=== PATIENT | male | born 1975 | race American Indian/Alaskan Native ===

== ENCOUNTER 2016-12-04 14:54 | Emergency (ER) | payer SELFPAY ==
[2016-12-04 16:22] LABS: Basophils % (Auto) 0.5 % (0.0-1.8); Eosinophils % (Auto) 1.2 % (0.0-4.3); Hematocrit 38.7 % (35.5-45.6); Hemoglobin 13.1 gm/dl (11.8-15.2); Mean Corpuscular HGB Conc 34 % (32-34); Mean Corpuscular Hemoglobin 32 pg (28-32); Mean Corpuscular Volume 93 fl (84-94); Platelet Count 281 K/mm3 (140-440); Red Blood Count 4.16 M/mm3 (3.65-5.03); Red Cell Distribution Width 13.6 % (13.2-15.2); White Blood Count 9.2 K/mm3 (4.5-11.0)
[2016-12-04 16:30] LABS: Anion Gap 16 mmol/L; Blood Urea Nitrogen 16 mg/dL (9-20); Calcium 8.7 mg/dL (8.4-10.2); Carbon Dioxide 26 mmol/L (22-30); Chloride 101.3 mmol/L (98-107); Glucose 115 mg/dL (75-100); Potassium 3.8 mmol/L (3.6-5.0); Sodium 139 mmol/L (137-145)
[2016-12-04 23:33] VITALS: BP 152/77
--- NOTE | 2016-12-04 23:57 | Emergency Department Report ---
ED Chest Pain HPI - General Chief Complaint: Chest Pain Stated Complaint: CHEST PAIN /CHILLS/COUGHING/SHARP PAIN ON BACK Time Seen by Provider: 12/04/16 23:45 Source: patient Mode of arrival: Ambulatory Limitations: No Limitations - History of Present Illness Initial Comments: 41-year-old male presents to the emergency department complaining of chest pain. Patient reports intermittent anterior chest pain for the past 3 days. He states that night he begins coughing and has difficulty sleeping. He reports nasal congestion and headache as well. Patient denies other associated symptoms. There are no other complaints. MD Complaint: chest pain -: Gradual, days(s) (3) Onset: during rest Pain Location: substernal Pain Radiation: none Severity: mild Severity scale (0 -10): 0 Quality: tightness Consistency: intermittent Improves With: nothing Worsens With: nothing re: denies: nausea, vomting, diaphoresis, dyspnea Other Symptoms: cough Treatments Prior to Arrival: none Aspirin use within the Past 7 Days: (0) No - Related Data Previous Rx's Medication Instructions Recorded Last Taken Type Famotidine [Pepcid] 20 mg PO BID #28 tablet 12/19/15 Unknown Rx Omeprazole [PriLOSEC] 20 mg PO QDAY #14 capsule. 12/19/15 Unknown Rx Benzonatate [Tessalon Perles] 100 mg PO Q8HR PRN #30 capsule 12/05/16 Unknown Rx Allergies Allergy/AdvReac Type Severity Reaction Status Date / Time No Known Allergies Allergy Verified 12/18/15 21:59 LIZZIE score - Lizzie Score Age > 65: (0) No Aspirin use within the Past 7 Days: (0) No 3 or more CAD Risk Factors: (0) No 2 or more Angina events in past 24 hrs: (0) No Known CAD with more than 50% Stenosis: (0) No Elevated Cardiac Markers: (0) No ST Deviation Greater than 0.5mm: (0) No LIZZIE Score: 0 ED Review of Systems ROS: Stated complaint: CHEST PAIN /CHILLS/COUGHING/SHARP PAIN ON BACK Other details as noted in HPI Comment: All other systems reviewed and negative ENT: congestion Respiratory: cough Cardiovascular: chest pain Neurological: headache ED Past Medical Hx - Past Medical History Previous Medical History?: Yes Additional medical history: Sinusitis. 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 right knee surgery - Family History Family history: CAD/CT - Social History Smoking Status: Current Every Day Smoker Substance Use Type: Alcohol - Medications Home Medications: Home Medications Medication Instructions Recorded Confirmed Last Taken Type Famotidine [Pepcid] 20 mg PO BID #28 tablet 12/19/15 Unknown Rx Omeprazole [PriLOSEC] 20 mg PO QDAY #14 capsule. 12/19/15 Unknown Rx Benzonatate [Tessalon Perles] 100 mg PO Q8HR PRN #30 capsule 12/05/16 Unknown Rx ED Physical Exam - General Limitations: No Limitations General appearance: alert, in no apparent distress - Head Head exam: Present: atraumatic, normocephalic - Eye Eye exam: Present: normal appearance, PERRL, EOMI - ENT ENT exam: Present: normal exam, normal orophraynx, mucous membranes moist - Neck Neck exam: Present: normal inspection, full ROM. Absent: tenderness - Respiratory Respiratory exam: Present: normal lung sounds bilaterally. Absent: respiratory distress - Cardiovascular Cardiovascular Exam: Present: regular rate, normal rhythm, normal heart sounds - GI/Abdominal GI/Abdominal exam: Present: soft, normal bowel sounds. Absent: distended, tenderness - Extremities Exam Extremities exam: Present: normal inspection, full ROM. Absent: tenderness - Back Exam Back exam: Present: normal inspection, full ROM. Absent: tenderness - Neurological Exam Neurological exam: Present: alert, oriented X3. Absent: motor sensory deficit - Skin Skin exam: Present: warm, dry, intact ED Course Vital Signs 12/04/16 12/04/16 12/04/16 15:18 21:12 23:32 Temperature 98 F 98.5 F Pulse Rate 66 62 74 Respiratory 16 20 16 Rate Blood Pressure 140/61 148/76 Blood Pressure 152/77 [Left] O2 Sat by Pulse 98 100 10 L Oximetry ED Medical Decision Making - Lab Data Result diagrams: 12/04/16 15:55 12/04/16 15:55 - EKG Data -: EKG Interpreted by Me EKG shows normal: sinus rhythm, axis, intervals, QRS complexes Rate: normal - EKG Data When compared to previous EKG there are: no significant change Interpretation: unchanged when compared t (12/18/2015), nonspecific ST-T wave jaylon - Radiology Data Radiology results: image reviewed interpreted by me: Chest x-ray shows no acute cardiopulmonary process. - Medical Decision Making Lab and imaging results reviewed and discussed with the patient. Patient has had a normal ECG and 3 negative troponins. Patient will be discharged home at this time to follow up with his primary care physician. - Differential Diagnosis atypical chest pain, pneumonia, bronchitis Critical care attestation.: If time is entered above; I have spent that time in minutes in the direct care of this critically ill patient, excluding procedure time. ED Disposition Clinical Impression: Non-cardiac chest pain Acute bronchitis Qualifiers: Bronchitis organism: unspecified organism Qualified Code(s): J20.9 - Acute bronchitis, unspecified Disposition: DISCHARGED TO HOME OR SELFCARE Is pt being admited?: No Condition: Stable Instructions: Chest Pain (ED), Acute Bronchitis (ED) Prescriptions: Benzonatate [Tessalon Perles] 100 mg PO Q8HR PRN #30 capsule PRN Reason: Cough Referrals: PRIMARY CARE, [Primary Care Provider] - 3-5 Days Time of Disposition: 00:35
--- NOTE | 2016-12-05 07:20 | XRay Report ---
CHEST 2 VIEWS INDICATION: Chest pain, cough. COMPARISON: None similar at this institution. FINDINGS: PA and lateral chest radiographs, 3 images, demonstrate normal cardiomediastinal silhouette. Clear lungs. Mild thoracic spine degenerative spurring. CONCLUSION: No acute disease in the chest. Thank you for the opportunity to participate in this patient's care.
== END 2016-12-05 00:56 | disposition home or self-care (01) ==
LOC: ED 14:54
DX: R07.89 Other chest pain (principal); J20.9 Acute bronchitis, unspecified; F17.200 Nicotine dependence, unspecified, uncomplicated
CPT/HCPCS: 36415; 71020; 80048; 84484; 85025; 93005; 93010

== ENCOUNTER 2019-02-27 23:55 | Emergency (ER) | payer OTHER ==
[2019-02-28 00:22] VITALS: BP 118/53
== END 2019-02-28 00:50 | disposition left against medical advice (07) ==
LOC: ED 23:55
DX: M54.5 Low back pain (principal); Z53.21 Procedure and treatment not carried out due to patient leaving prior to being seen by health care provider

== ENCOUNTER 2019-09-12 04:52 | Emergency (ER) | payer BC, OTHER ==
--- NOTE | 2019-09-12 06:14 | XRay Report ---
Lumbosacral spine, 2 views INDICATION: Severe back pain following injury today COMPARISON: 08/27/2018 FINDINGS: The vertebral body heights and disc spaces are maintained. There is no fracture or spondylo listhesis. Only minimal anterior spurring is seen with slight lower lumbar facet arthropathy. Overlyi ng brace obscures some detail but there is no definite change from 2018. Signer Name: Andrew Temple MD Signed: 09/12/2019 6:10 AM Workstation Name: [id number]
[2019-09-12] MEDS ORDERED: KETOROLAC 30 MG/1 ML INJ IV ONE (06:26)
[2019-09-12] MEDS ORDERED: LORazepam 2 MG/ML VIAL IV ONE (06:26)
[2019-09-12] MEDS ORDERED: SODIUM CHLORIDE 0.9% 1000 ML 1,000 ML IV ONE (06:27)
[2019-09-12 06:29] VITALS: BP 152/90
--- NOTE | 2019-09-12 07:12 | Cat Scan Report ---
CT lumbar spine without contrast INDICATION: lower back pain, r leg weak/numb. TECHNIQUE: Axial imaging performed through the lumbar spine without the use of contrast. Sagittal a nd coronal reconstructed images were also reviewed. All CT scans at this location are performed usin g CT dose reduction for ALARA by means of automated exposure control. COMPARISON: Lumbar spine radiograph from today FINDINGS: Alignment: Spinal alignment is normal. Bones: There is no acute osseous abnormality. Mild multilevel discogenic DJD is present. Soft tissues: No acute or significant incidental soft tissue abnormality. IMPRESSION: No acute abnormality. Signer Name: Braxton Packer MD Signed: 09/12/2019 7:07 AM Workstation Name: [id number]
--- NOTE | 2019-09-12 07:13 | XRay Report ---
AP pelvis INDICATION: fall pain. Inability to move the right leg COMPARISON: Lumbar spine series from today IMPRESSION: No acute osseous or soft tissue abnormality. Mild DJD in the right hip. Signer Name: Braxton Packer MD Signed: 09/12/2019 7:09 AM Workstation Name: [id number]
[2019-09-12 07:24] LABS: Basophils # (Auto) 0.1 K/mm3 (0.0-0.1); Basophils % (Auto) 0.7 % (0.0-1.8); Eosinophils # (Auto) 0.1 K/mm3 (0.0-0.4); Eosinophils % (Auto) 1.9 % (0.0-4.3); Hematocrit 39.7 % (35.5-45.6); Lymphocytes # (Auto) 2.3 K/mm3 (1.2-5.4); Lymphocytes % (Auto) 30.6 % (13.4-35.0); Mean Corpuscular HGB Conc 35 % (32-34); Mean Corpuscular Volume 92 fl (84-94); Monocytes # (Auto) 0.6 K/mm3 (0.0-0.8); Monocytes % (Auto) 8.2 % (0.0-7.3); Platelet Count 323 K/mm3 (140-440); Red Cell Distribution Width 13.3 % (13.2-15.2)
[2019-09-12 07:34] LABS: INR 0.99 (0.87-1.13)
[2019-09-12 07:35] LABS: Partial Thromboplastin Time 29.7 Sec. (24.2-36.6)
[2019-09-12 07:38] LABS: BUN/Creatinine Ratio 15; Blood Urea Nitrogen 12 mg/dL (9-20); Calcium 8.7 mg/dL (8.4-10.2); Hemolysis Index 27
--- NOTE | 2019-09-12 09:52 | Emergency Department Report ---
ED General Adult HPI - General Chief complaint: Fall Stated complaint: NECK AND BACK PAIN Time Seen by Provider: 09/12/19 06:19 Source: patient, EMS Mode of arrival: Stretcher Limitations: Physical Limitation - History of Present Illness Initial comments: This is a 44-year-old male who states that he was getting out of bed to get to the bathroom and his "right knee gave out. He does not complain of knee pain. He complains of right hip and lower back pain. He states that he had a back injury in June. He does not report street of herniated disc. He arrives via EMS after being given a milligrams of morphine. He states that he is unable to move his right leg or feel anything globally. He does not report any bowel or bladder dysfunction. Does not report radiating pain or history of sciatica per se. -: Gradual Location: back, right, lower extremity (right hip area) Severity scale (0 -10): 9 Associated Symptoms: denies other symptoms - Related Data Previous Rx's Medication Instructions Recorded Last Taken Type Famotidine [Pepcid] 20 mg PO BID #60 tablet 08/28/18 Unknown Rx Cyclobenzaprine [Flexeril] 10 mg PO TID PRN #14 tablet 09/12/19 Unknown Rx Naproxen [Naprosyn] 500 mg PO BID #10 tablet 09/12/19 Unknown Rx Allergies Allergy/AdvReac Type Severity Reaction Status Date / Time No Known Allergies Allergy Verified 12/18/15 21:59 ED Review of Systems ROS: Stated complaint: NECK AND BACK PAIN Other details as noted in HPI Constitutional: denies: chills, fever Eyes: denies: eye pain, eye discharge, vision change ENT: denies: ear pain, throat pain Respiratory: denies: cough, shortness of breath, wheezing Cardiovascular: denies: chest pain, palpitations Endocrine: no symptoms reported Gastrointestinal: denies: abdominal pain, nausea, diarrhea Genitourinary: denies: urgency, dysuria Musculoskeletal: denies: back pain, joint swelling, arthralgia Skin: denies: rash, lesions Neurological: weakness, numbness. denies: headache, paresthesias Psychiatric: denies: anxiety, depression Hematological/Lymphatic: denies: easy bleeding, easy bruising ED Past Medical Hx - Past Medical History Previous Medical History?: Yes Hx Congestive Heart Failure: No Hx Diabetes: No Hx Asthma: No Hx COPD: No Hx HIV: No Additional medical history: Sinusitis. 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 right knee surgery - Social History Smoking Status: Current Every Day Smoker Substance Use Type: Alcohol - Medications Home Medications: Home Medications Medication Instructions Recorded Confirmed Last Taken Type Famotidine [Pepcid] 20 mg PO BID #60 tablet 08/28/18 Unknown Rx Cyclobenzaprine [Flexeril] 10 mg PO TID PRN #14 tablet 09/12/19 Unknown Rx Naproxen [Naprosyn] 500 mg PO BID #10 tablet 09/12/19 Unknown Rx ED Physical Exam - General Limitations: Physical Limitation General appearance: alert, in no apparent distress - Head Head exam: Present: atraumatic, normocephalic - Eye Eye exam: Present: normal appearance. Absent: scleral icterus - ENT ENT exam: Present: mucous membranes moist - Neck Neck exam: Present: normal inspection - Respiratory Respiratory exam: Present: normal lung sounds bilaterally. Absent: respiratory distress - Cardiovascular Cardiovascular Exam: Present: regular rate, normal rhythm. Absent: systolic murmur, diastolic murmur, rubs, gallop - GI/Abdominal GI/Abdominal exam: Present: soft, normal bowel sounds. Absent: distended, tenderness, guarding, rebound, rigid - Rectal Rectal exam: Present: deferred - Extremities Exam Extremities exam: Present: normal inspection - Back Exam Back exam: Present: other (wounds from back board complains of lower back pain) - Neurological Exam Neurological exam: Present: alert, oriented X3, CN II-XII intact, motor sensory deficit (patient claims he does not have sensation of his right leg and cannot m ove it.) - Psychiatric Psychiatric exam: Present: anxious, flat affect - Skin Skin exam: Present: warm, dry, intact, normal color. Absent: rash ED Course Vital Signs 09/12/19 06:13 Temperature 98.0 F Pulse Rate 63 Respiratory 20 Rate Blood Pressure 152/90 [Right] O2 Sat by Pulse 99 Oximetry - Reevaluation(s) Reevaluation #1: 09/12/19 09:55 Plain x-rays and CT of the lumbar spine showed no evidence of central cord compression. It did appear that the patient's symptoms were somewhat somatic in nature. He was given Ativan and Toradol. Eventually he regained 5 out of 5 strength and sensation of his right lower extremity. He will be referred to orthopedics for further care and evaluation. He was able to ambulate at the time of discharge. He stated his pain was improved. 09/12/19 09:56 ED Medical Decision Making - Lab Data Result diagrams: 09/12/19 06:55 09/12/19 06:55 Laboratory Results - last 24 hr 09/12/19 09/12/19 09/12/19 06:55 06:55 06:55 WBC 7.5 RBC 4.30 Hgb 14.0 Hct 39.7 MCV 92 MCH 33 H MCHC 35 H RDW 13.3 Plt Count 323 Lymph % (Auto) 30.6 [place] % (Auto) 8.2 H Eos % (Auto) 1.9 Baso % (Auto) 0.7 Lymph # 2.3 [place] # 0.6 Eos # 0.1 Baso # 0.1 Seg Neutrophils % 58.6 Seg Neutrophils # 4.4 PT 13.2 INR 0.99 APTT 29.7 Sodium 140 Potassium 3.5 L Chloride 102.6 Carbon Dioxide 20 L Anion Gap 21 BUN 12 Creatinine 0.8 Estimated GFR > 60 BUN/Creatinine Ratio 15 Glucose 91 Calcium 8.7 Plasma/Serum Alcohol 09/12/19 06:55 WBC RBC Hgb Hct MCV MCH MCHC RDW Plt Count Lymph % (Auto) [place] % (Auto) Eos % (Auto) Baso % (Auto) Lymph # [place] # Eos # Baso # Seg Neutrophils % Seg Neutrophils # PT INR APTT Sodium Potassium Chloride Carbon Dioxide Anion Gap BUN Creatinine Estimated GFR BUN/Creatinine Ratio Glucose Calcium Plasma/Serum Alcohol 0.04 - Radiology Data Radiology results: report reviewed, image reviewed : Alignment: Spinal alignment is normal. Bones: There is no acute osseous abnormality. Mild multilevel discogenic DJD is present. Soft tissues: No acute or significant incidental soft tissue abnormality. IMPRESSION: No acute abnormality. Plain films no acute process seen Critical care attestation.: If time is entered above; I have spent that time in minutes in the direct care of this critically ill patient, excluding procedure time. ED Disposition Clinical Impression: Low back pain Qualifiers: Chronicity: acute Back pain laterality: midline Sciatica presence: with sciatica Sciatica laterality: sciatica of right side Qualified Code(s): M54.41 - Lumbago with sciatica, right side Disposition: DC-01 TO HOME OR SELFCARE Is pt being admited?: No Does the pt Need Aspirin: No Condition: Stable Instructions: Low Back Strain (ED) Additional Instructions: C referral to orthopedist. Further evaluation is recommended. Return to the emergency department any recurrent numbness or weakness. Prescriptions: Cyclobenzaprine [Flexeril] 10 mg PO TID PRN #14 tablet PRN Reason: Muscle Spasm Naproxen [Naprosyn] 500 mg PO BID #10 tablet Referrals: PRIMARY MD LISSY [Primary Care Provider] - 3-5 Days ALEX CALABRESE MD [Staff Physician] - 24 Hours [facility] [Provider Group] - 3-5 Days Time of Disposition: 09:59
== END 2019-09-12 10:28 | disposition home or self-care (01) ==
LOC: ED 04:52
DX: M54.5 Low back pain (principal); M25.551 Pain in right hip; F17.200 Nicotine dependence, unspecified, uncomplicated
CPT/HCPCS: 36415; 72100; 72131; 72170; 80048; 85025; 85610; 85730; 96374; 96375; 99284; J1885; J2060; J7030; 80320; G0480